=== PATIENT | male | born 1995 | race Caucasian/White ===

== ENCOUNTER 2016-11-08 23:35 | Emergency (ER) | payer SELFPAY ==
[~2016-11-08] VITALS: Ht 165.1 cm; Wt 73.5 kg
[2016-11-08 23:48] VITALS: Ht 165.1 cm; Wt 73.5 kg
[2016-11-09] MEDS ORDERED: AMO500 PO (02:15)
[2016-11-09] MEDS ORDERED: IBUP-1542 PO (02:15)
--- NOTE | 2016-11-09 02:20 | ERD ---
ER Documentation Chief Complaint Date/Time DATE: 11/09/16 TIME: 02:17 Chief Complaint left earache x 3 days HPI 21-year-old otherwise healthy male presents to the emergency department for left ear pain 3 days. Patient states that he has been experiencing cough, cold , congestion, headache, chills, body aches, for the past week. Patient notes multiple sick contacts at home. Patient has taken Tylenol today and experienced moderate relief of symptoms. ROS All systems reviewed and are negative except as per history of present illness. Medications Home Meds Active Scripts Ibuprofen* (Motrin*) 600 Mg Tab, 600 MG PO Q6H Y for PAIN AND OR ELEVATED TEMP, #30 TAB Prov:JOSE G ANAND PA-C 11/09/16 Amoxicillin* (Amoxicillin*) 500 Mg Cap, 500 MG PO TID for 10 Days, CAP Prov:JOSE G ANAND PA-C 11/09/16 Allergies Allergies: Coded Allergies: No Known Drug Allergies (Verified Allergy, Unknown, 11/08/16) Physical Exam Vitals Vital Signs Date Time Temp Pulse Resp B/P Pulse Ox O2 Delivery O2 Flow Rate FiO2 11/08/16 23:48 100.5 105 20 146/84 100 Physical Exam General: Well developed, well nourished, interactive, no distress Head: Normocephalic, atraumatic EENT: Pupils equally reactive, EOM intact, posterior pharynx without exudates, uvula midline, left-sided tympanic membrane diffusely erythematous and moderately bulging. Right-sided tympanic membrane without erythema or swelling Neck: Supple, no lymphadenopathy Respiratory: Lungs clear bilaterally, no distress Cardiovascular: RRR, no murmurs, rubs, or gallops Abdominal: Soft, non-tender, non-distended, no peritoneal signs : Deferred MSK: No edema, no unilateral swelling, moving all four extremities Nurologic: Alert, interactive, playful, moving all extremities without deficits , appropriate for age Skin: No rash Procedures/MDM The patient's clinical presentation is very consistent with an acute viral syndrome and otitis media. The patient does not exhibit any clinical signs or symptoms concerning for serious bacterial infection or systemic illness. Based on history and clinical exam findings the patient does not appear to have evidence of pneumonia, strep pharyngitis, urinary tract infection, bacteremia, sepsis, or meningitis. For these reasons I do not believe it is necessary to obtain laboratory testing or diagnostic imaging. I believe it would be appropriate for symptom control, and close outpatient primary care follow-up. Patient to complete amoxicillin antibiotic therapy. Patient to continue Motrin and Tylenol for pain and fever relief. Based on patient's history of present illness and physical examination the decision was made to discharge. The patient was re-evaluated after ED treatment and stabilizing measures, and symptoms have improved. There is no evidence of life threatening injuries or illnesses at this time. On re-examination, patient resting in no distress, stable vital signs, reports feeling better and safe for discharge with outpatient follow up with PMD in 1-2 days. Patient given return precautions. Departure Diagnosis: Primary Impression: Viral URI Additional Impression: Otitis media Otitis media type: unspecified Laterality: left Chronicity: unspecified Qualified Code: H66.92 - Left otitis media, unspecified chronicity, unspecified otitis media type Condition: Stable Patient Instructions: Otitis Media, Abx Tx (Adult) Referrals: [facility] YOU HAVE RECEIVED A MEDICAL SCREENING EXAM AND THE RESULTS INDICATE THAT YOU DO NOT HAVE A CONDITION THAT REQUIRES URGENT TREATMENT IN THE EMERGENCY DEPARTMENT. FURTHER EVALUATION AND TREATMENT OF YOUR CONDITION CAN WAIT UNTIL YOU ARE SEEN IN YOUR DOCTORS OFFICE WITHIN THE NEXT 1-2 DAYS. IT IS YOUR RESPONSIBILITY TO MAKE AN APPOINTMENT FOR FOLOW-UP CARE. IF YOU HAVE A PRIMARY DOCTOR --you should call your primary doctor and schedule an appointment IF YOU DO NOT HAVE A PRIMARY DOCTOR YOU CAN CALL OUR PHYSICIAN REFERRAL HOTLINE AT IF YOU CAN NOT AFFORD TO SEE A PHYSICIAN YOU CAN CHOSE FROM THE FOLLOWING [facility] [id number] [facility] [address] [facility] [address] [facility] [address] [facility] [address] [facility]. [facility]. [address] Additional Instructions: Call your primary care doctor TOMORROW for an appointment during the next 1-2 days.See the doctor sooner or return here if your condition worsens before your appointment time. JOSE G ANAND PA-C Nov 09, 2016 02:20
[2016-11-09] MEDS ORDERED: IBUPROFEN 600 MG TAB PO ONE (02:30)
[2016-11-09 02:38] VITALS: BP 134/80; PULSE 70; RESP 18; TEMP 98.9
== END 2016-11-09 02:39 | disposition home or self-care (01) ==
LOC: FTE 23:35
DX: J06.9 Acute upper respiratory infection, unspecified (principal); H66.92 Otitis media, unspecified, left ear
CPT/HCPCS: 99283